=== PATIENT | female | born 1965 | race Caucasian/White ===

== ENCOUNTER 2018-06-25 07:33 | Inpatient (IN) | END 2018-06-26 20:20 | disposition home or self-care (01) | DRG 583 ==

== ENCOUNTER 2018-06-27 15:27 | Emergency (ER) | END 2018-06-27 18:45 | disposition left against medical advice (07) ==

== ENCOUNTER 2018-07-18 14:05 | Emergency (ER) | payer OTHER ==
[~2018-07-18] VITALS: Ht 167.6 cm; Wt 76.2 kg
[~2018-07-18 14:05] MED LIST: ALPR2TAB PO; ATOR20TA38 PO; BENA1TAB14 PO; BUSP10TA2 PO; DOCU-144 PO; GABA300C16 PO; HYDR25TA6 PO; LAMO200T3 PO; PARO30TA48 PO; PRAZ1CAP3 PO; RISP1TAB3 PO; TRAZ150T65 PO
[2018-07-18 14:11] VITALS: Ht 167.6 cm; Wt 76.2 kg
[2018-07-18] MEDS ORDERED: ONDANSETRON (ODT) 4 MG TAB ODT STA (14:23)
[2018-07-18] MEDS ORDERED: HYDROCODONE/APAP (10/325) TAB PO ONE (14:30)
[2018-07-18] MEDS ORDERED: HYDR-3980 PO ×2 (15:10→15:24)
[2018-07-18] MEDS ORDERED: AMLO5TAB4 PO (15:10)
--- NOTE | 2018-07-18 15:13 | ERD ---
ER Documentation Chief Complaint Chief Complaint Complains of Post op pain Hx of Breast surgery x 2 weeks ago HPI 53-year-old female who presents with right-sided chest wall pain and surgical site pain status post mastectomy [address] Jamil. The patient had mastectomy secondary to breast cancer. She states that she ran out of her [place] and has had worsening pain over the past 24-48 hours. She notes mild redness around the surgical site and fluid within the surgical site. She denies significant fevers. No chest pain no pleuritic pain no cough or shortness of breath no abdominal pain. She called Dr. Jamil today who told her to come to the emergency room for evaluation. ROS All systems reviewed and are negative except as per history of present illness. Medications Home Meds Active Scripts Hydrocodone/Acetaminophen ([place] 10-325 Tablet) 1 Each Tablet, 1 TAB PO Q6H PRN for PAIN, #10 TAB Prov:FEI CAPELLAN MD 07/18/18 Docusate Sodium* (Colace*) 100 Mg Capsule, 100 MG PO BID, #30 CAP Prov:AVNI MANUEL 06/26/18 Hydrochlorothiazide* (Hydrochlorothiazide*) 25 Mg Tab, 25 MG PO DAILY for 30 Days, TAB Prov:AVNI MANUEL 06/26/18 Reported Medications Amlodipine Besylate* (Norvasc*) 5 Mg Tablet, 5 MG PO DAILY, TAB 07/18/18 Hydrocodone/Acetaminophen ([place] 10-325 Tablet) 1 Each Tablet, 1 EACH PO Q6 PRN for SEVERE PAIN LEVEL 7-10, TAB 07/18/18 Buspirone Hcl* (Buspirone Hcl*) 10 Mg Tab, 10 MG PO BID, TAB 06/25/18 Prazosin Hcl* (Prazosin Hcl*) 1 Mg Capsule, 1 MG PO HS, CAP 06/25/18 Atorvastatin Calcium* (Atorvastatin Calcium*) 20 Mg Tablet, 20 MG PO QHS, #30 TAB 06/25/18 Lamotrigine* (Lamictal*) 200 Mg Tablet, 200 MG PO BID, TAB 06/25/18 Benazepril-Hydrochlorothiazide (Benazepril-Hydrochlorothiazide) 20-25 Mg Tablet, 1 TAB PO DAILY, #30 TAB 06/25/18 Trazodone Hcl* (Desyrel*) 150 Mg Tablet, 150 MG PO QHS, #30 TAB 06/25/18 Gabapentin* (Gabapentin*) 300 Mg Capsule, 300 MG PO TID, #90 CAP 06/25/18 Paroxetine Hcl* (Paxil*) 30 Mg Tablet, 30 MG PO DAILY, TAB 06/25/18 Risperidone* (Risperidone*) 1 Mg Tablet, 1 MG PO BID, TAB 06/25/18 Alprazolam* (Xanax*) 2 Mg Tablet, 2 MG PO DAILY PRN for ANXIETY, TAB 06/25/18 Allergies Allergies: Coded Allergies: No Known Drug Allergies (Unverified Allergy, Unknown, 06/25/18) PMhx/Soc History of Surgery: Yes (tumor on the neck, csection x 1) Anesthesia Reaction: No Hx Neurological Disorder: No Hx Respiratory Disorders: Yes (asthma) Hx Cardiac Disorders: Yes (htn, hld) Hx Psychiatric Problems: No Hx Miscellaneous Medical Probl: No Hx Alcohol Use: No Hx Substance Use: No Hx Tobacco Use: Yes Smoking Status: Current every day smoker FmHx Family History: No diabetes Physical Exam Vitals Vital Signs Date Temp Pulse Resp B/P (MAP) Pulse Ox O2 O2 Flow FiO2 Time Delivery Rate 07/18/18 99.0 104 20 142/104 94 Room Air 15:16 (117) 07/18/18 109 18 135/100 96 Room Air 14:31 (112) 07/18/18 97.2 112 20 204/125 97 14:11 (151) Physical Exam General: Well developed, well nourished, no acute distress Head: Normocephalic, atraumatic. 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 No lymphangitic spread. The patient has a fluid wave consistent with seroma, no dehiscence drainage or discharge. Psych: Normal mood Results 24 hrs Current Medications Medications Dose Sig/Mervin Start Time Status Last (Trade) Ordered Route PRN Stop Time Admin Dose Reason Admin 1 tab ONCE ONCE 07/18/18 DC 07/18/18 Acetaminophen PO 14:30 14:36 / 07/18/18 Hydrocodone 14:31 Bitart ([place] ()) Ondansetron 4 mg ONCE STAT 07/18/18 DC 07/18/18 HCl (Zofran ODT 14:23 14:36 Odt) 07/18/18 14:25 Procedures/MDM Clinical exam is likely consistent with postoperative seroma. The patient slig ht erythema is likely normal healing process rather than cellulitis given appearance, no warmth and no significant tenderness. The patient ran out of her [place] and she is asking for refill of at least 30 days worth of [place]. She was advised that I cannot provide this in the emergency room setting. I will provide the patient with her [place]. A short prescription can be provided. I have reached out to Dr. Jamil to discuss the case, clinical exam. This is likely something that can be followed up in his office given clinical appearance, no obvious evidence of infection. Patient's blood pressure was elevated (>120/80) but appears stable without evidence of hypertensive emergency or urgency. The patient was counseled about the risks of hypertension and urged to pursue outpatient monitoring and therapy within a week with their primary care physician. Blood pressure improved without intervention. No callback from Dr Jamil for > [id number]. Given no e/o acute process, patient can be discharged with follow up in his office. No indication to keep patient longer in ED We discussed follow up with the patient's primary care doctor within 24 to 48 hours as needed. We also discussed return to the emergency room for worsening symptoms or worsening condition. Outpatient referral: Dr Jamil Discharge Medications: [place] Departure Diagnosis: Primary Impression: Postoperative seroma Surgical complication system/body Area: subcutaneous tissue Procedure type: non-dermatologic Qualified Codes: L76.34 - Postprocedural seroma of skin and subcutaneous tissue following other procedure Additional Impression: Postoperative pain Condition: Stable FEI CAPELLAN MD Jul 18, 2018 15:13
[2018-07-18 15:16] VITALS: BP 142/104; PULSE 104; RESP 20
== END 2018-07-18 15:55 | disposition home or self-care (01) ==
LOC: E/R 14:05
DX: L76.34 Postprocedural seroma of skin and subcutaneous tissue following other procedure (principal); I10 Essential (primary) hypertension; J45.909 Unspecified asthma, uncomplicated; F17.210 Nicotine dependence, cigarettes, uncomplicated; Z76.0 Encounter for issue of repeat prescription
CPT/HCPCS: Z7610 ×2; 99283

== ENCOUNTER 2018-10-07 08:30 | Day surgery (SDC) | payer OTHER ==
[~2018-10-07] VITALS: Ht 162.6 cm; Wt 70.6 kg
[~2018-10-07 08:30] MED LIST changes: +AMLO5TAB4 PO; +HYDR-3980 PO
--- NOTE | 2018-10-07 08:44 | HPN ---
Date/Time of Note Date/Time of Note DATE: 10/07/18 TIME: 08:44 Interval H&P Admission Note Pt. seen H&P reviewed: No system changes TIFFANIE BURNS MD Oct 07, 2018 08:44
[2018-10-07] MEDS ORDERED: SOD CHLORIDE 0.9% 1,000 ML IV SCH (09:00)
[2018-10-07] MEDS ORDERED: POLYMYXIN/BACITRACIN 1L IRRIG IRR ONE (09:00)
[2018-10-07] MEDS ORDERED: CEFAZOLIN 1 GM/50 ML (PMX) 50 ML IVPB ONE ×2 (09:00→09:20)
[2018-10-07] MEDS ORDERED: LIDOCAINE 1%/EPI (1:100,000) (MDV) 20 ML ONE (09:20)
[2018-10-07] MEDS ORDERED: MIDAZOLAM 1 MG/ML 2 ML INJ ONE ×2 (09:20→10:42)
[2018-10-07] MEDS ORDERED: HEPARIN 1000 UNITS/ML 10 ML INJ ONE (09:20)
[2018-10-07] MEDS ORDERED: FENTAnyl 50 MCG/ML VIAL ONE ×2 (09:20→10:42)
[2018-10-07 09:35] VITALS: Ht 162.6 cm; Wt 70.6 kg
[2018-10-07 09:40] VITALS: BP 169/89; PULSE 83; RESP 16
[2018-10-07 11:30] VITALS: BP 147/78; PULSE 78; RESP 17
[2018-10-07 12:06] VITALS: BP 139/91; PULSE 84; RESP 18
== END 2018-10-07 13:30 | disposition home or self-care (01) ==
LOC: SDS 08:30
PROVIDERS: ATTEND Internal Medicine Hematology & Oncology
DX: C50.911 Malignant neoplasm of unspecified site of right female breast (principal)
CPT/HCPCS: 36561; 76942; C1788; J0690; J1644; J2250; J3010; Z7610

== ENCOUNTER 2018-11-16 13:32 | Emergency (ER) | payer OTHER ==
[~2018-11-16] VITALS: Ht 162.6 cm; Wt 71.4 kg
[~2018-11-16 13:32] MED LIST changes: -DOCU-144 PO
[2018-11-16 13:36] VITALS: BP 143/82; PULSE 91; RESP 18; Ht 162.6 cm; Wt 71.4 kg
[2018-11-16] MEDS ORDERED: LIDOCAINE 1% (MPF) 5 ML VIAL INJ ONE (14:00)
[2018-11-16] MEDS ORDERED: NAPR-985 PO (14:33)
--- NOTE | 2018-11-16 14:42 | ERD ---
ER Documentation Chief Complaint Chief Complaint right ear laceration occurred last night from an earring HPI 53-year-old female presenting with laceration to her right ear. Patient was sl eeping and she caught her ear and her pillow and it pulled her earring out. She denies any other medical problems. NKDA. Surgical history denies. Social history denies ROS All systems reviewed and are negative except as per history of present illness. Medications Home Meds Active Scripts Naproxen* (Naprosyn*) 500 Mg Tablet, 500 MG PO BID PRN for PAIN AND/OR INFLAMMATION, #30 TAB Prov:KAYLYNN VALENCIA PA-C 11/16/18 Hydrocodone/Acetaminophen ([place] 10-325 Tablet) 1 Each Tablet, 1 TAB PO Q6H PRN for PAIN, #10 TAB Prov:FEI CAPELLAN MD 07/18/18 Hydrochlorothiazide* (Hydrochlorothiazide*) 25 Mg Tab, 25 MG PO DAILY for 30 Days, TAB Prov:AVNI MANUEL 06/26/18 Reported Medications Amlodipine Besylate* (Norvasc*) 5 Mg Tablet, 5 MG PO DAILY, TAB 07/18/18 Hydrocodone/Acetaminophen ([place] 10-325 Tablet) 1 Each Tablet, 1 EACH PO Q6 PRN for SEVERE PAIN LEVEL 7-10, TAB 07/18/18 Buspirone Hcl* (Buspirone Hcl*) 10 Mg Tab, 10 MG PO BID, TAB 06/25/18 Prazosin Hcl* (Prazosin Hcl*) 1 Mg Capsule, 1 MG PO HS, CAP 06/25/18 Atorvastatin Calcium* (Atorvastatin Calcium*) 20 Mg Tablet, 20 MG PO QHS, #30 TAB 06/25/18 Lamotrigine* (Lamictal*) 200 Mg Tablet, 200 MG PO BID, TAB 06/25/18 Benazepril-Hydrochlorothiazide (Benazepril-Hydrochlorothiazide) 20-25 Mg Tablet, 1 TAB PO DAILY, #30 TAB 06/25/18 Trazodone Hcl* (Desyrel*) 150 Mg Tablet, 150 MG PO QHS, #30 TAB 06/25/18 Gabapentin* (Gabapentin*) 300 Mg Capsule, 300 MG PO TID, #90 CAP 06/25/18 Paroxetine Hcl* (Paxil*) 30 Mg Tablet, 30 MG PO DAILY, TAB 06/25/18 Risperidone* (Risperidone*) 1 Mg Tablet, 1 MG PO BID, TAB 06/25/18 Alprazolam* (Xanax*) 2 Mg Tablet, 2 MG PO DAILY PRN for ANXIETY, TAB 06/25/18 Allergies Allergies: Coded Allergies: aspirin (Verified Allergy, Unknown, RASH, 10/07/18) PMhx/Soc History of Surgery: Yes (rt breast surgery,neck surgery,left arm surgery) Anesthesia Reaction: No Hx Neurological Disorder: No Hx Respiratory Disorders: No Hx Cardiac Disorders: Yes (HTN) Hx Psychiatric Problems: No Hx Miscellaneous Medical Probl: Yes (rt breast cance) Hx Alcohol Use: No Hx Substance Use: Yes Hx Tobacco Use: Yes Smoking Status: Never smoker FmHx Family History: No diabetes, No coronary disease, No other Physical Exam Vitals Vital Signs Date Temp Pulse Resp B/P (MAP) Pulse Ox O2 O2 Flow FiO2 Time Delivery Rate 11/16/18 97.1 91 18 143/82 98 13:36 (102) Physical Exam GENERAL: The patient is well-appearing, well-nourished, in no acute distress HEENT: Atraumatic. Conjunctivae are pink. Pupils equal, round, and reactive to light. There is no scleral icterus. Tympanic membranes clear bilaterally. Oropharynx clear. CHEST: Clear to auscultation bilaterally. There are no rales, wheezes or rhonchi. HEART: Regular rate and rhythm. No murmurs, clicks, rubs or gallops. SKIN: Laceration to the mid pinna with no active bleeding. approximately 6mm Results 24 hrs Current Medications Medications Dose Sig/Mervin Start Time Status Last (Trade) Ordered Route PRN Stop Time Admin Dose Reason Admin Lidocaine 5 ml ONCE ONCE 11/16/18 DC (Xylocaine INJ 14:00 1% (Mpf)) 11/16/18 14:01 Procedures/MDM Laceration Repair by me: Anesthesia: 1% lidocaine locally Location: right ear Tendon/Joint/Nerves: No injury Foreign body: None detected after copious irrigation and exploration Technique: Simple Interrupted Sutures Complexity: No subcutaneous sutures/mucosal repair/edge excision Post Closure Length: 5mm Patient's bleeding was easily controlled in the department and there is no indication of anemia. No evidence of compartment syndrome, neurologic injury, vascular injury, open joint, tendon laceration, or foreign body. Patient is appropriate for outpatient follow up. 48 hour wound check. Scar minimization instructions given. MDM: 53-year-old female presenting with laceration. Laceration repaired in the ER. I have low suspicion for tendon or ligament injury. I have low suspicion for infectious process. Patient is recommended to have sutures removed within 7 days. Patient is told symptoms change or worsen to return immediately to the ER. All questions answered at discharge Departure Diagnosis: Primary Impression: Laceration Condition: Stable Patient Instructions: Laceration, Face (Suture Or Tape) Referrals: [facility] YOU HAVE RECEIVED A MEDICAL SCREENING EXAM AND THE RESULTS INDICATE THAT YOU DO NOT HAVE A CONDITION THAT REQUIRES URGENT TREATMENT IN THE EMERGENCY DEPARTMENT. FURTHER EVALUATION AND TREATMENT OF YOUR CONDITION CAN WAIT UNTIL YOU ARE SEEN IN YOUR DOCTORS OFFICE WITHIN THE NEXT 1-2 DAYS. IT IS YOUR RESPONSIBILITY TO MAKE AN APPOINTMENT FOR FOLOW-UP CARE. IF YOU HAVE A PRIMARY DOCTOR --you should call your primary doctor and schedule an appointment IF YOU DO NOT HAVE A PRIMARY DOCTOR YOU CAN CALL OUR PHYSICIAN REFERRAL HOTLINE AT IF YOU CAN NOT AFFORD TO SEE A PHYSICIAN YOU CAN CHOSE FROM THE FOLLOWING [facility] [address] [facility]. [facility] [address] [facility] [facility] [address] [facility] [facility] [address] [facility]. [facility] [address] [facility]. [facility]. [address] [place] Additional Instructions: FOLLOW UP WITH YOUR PRIMARY CARE PHYSICIAN TOMORROW.Return to this facility if you are not improving as expected. KAYLYNN VALENCIA PA-C Nov 16, 2018 14:42
== END 2018-11-16 14:45 | disposition home or self-care (01) ==
LOC: FTE 13:32
DX: S01.311A Laceration without foreign body of right ear, initial encounter (principal); I10 Essential (primary) hypertension; X58.XXXA Exposure to other specified factors, initial encounter; Y92.9 Unspecified place or not applicable; Z85.3 Personal history of malignant neoplasm of breast; Z87.891 Personal history of nicotine dependence
CPT/HCPCS: 12011; Z7610